=== PATIENT | female | born 1985 | race Caucasian/White ===

== ENCOUNTER 2018-11-28 20:11 | Emergency (ER) | payer SELFPAY ==
[~2018-11-28] VITALS: Ht 162.6 cm; Wt 81.6 kg
--- NOTE | 2018-11-28 20:46 | NUR ---
BIBSELF C/O SOB. +NONPRODUCTIVE COUGH X1 WEEK. +VOMITTING, +CHEST TIGHTNESS, -FEVER. AOX4, AMB, VSS, RR EVEN AND UNLABORED ON RA. SKIN WARM, DRY, INTACT AND NO ACUTE DISTRESS NOTED. FAMILY AT BEDSIDE. READY FOR EVAL.
--- NOTE | 2018-11-28 21:34 | NUR ---
CALLED RT FOR TREATMENT
[2018-11-28] MEDS: ALBUTEROL FS 2.5 MG/3 ML VIAL.NEB NEB ONE (21:42)
[2018-11-28] MEDS: IPRATROPIUM NEB FS 0.5 MG/2.5 ML AMPUL.NEB NEB ONE (21:42)
--- NOTE | 2018-11-28 21:44 | NUR ---
RT AT BEDSIDE FOR BREATHING TREATMENT
[2018-11-28 23:46] VITALS: BP 130/75
--- NOTE | 2018-11-28 23:46 | NUR ---
Patient discharged to home in stable condition. Written and verbal after care instructions given. Patient verbalizes understanding of instruction.
== END 2018-11-28 23:48 | disposition home or self-care (01) ==
LOC: ER 20:17
DX: J20.9 Acute bronchitis, unspecified (principal)
CPT/HCPCS: 71045-TC